=== PATIENT | female | born 1985 | race Caucasian/White ===

== ENCOUNTER → 2017-06-24 | Emergency (ER) | payer OTHER ==
[~2017-06-24] VITALS: Ht 157.5 cm; Wt 67.1 kg
[~2017-06-24] MED LIST: PNEU16DI2; WELLBUTRIN XL150 M1
== END | disposition home or self-care (01) ==
LOC: ER 19:30
DX: Z91.410 Personal history of adult physical and sexual abuse (principal)

== ENCOUNTER 2018-11-11 16:45 | Emergency (ER) | payer OTHER ==
[~2018-11-11] VITALS: Ht 157.5 cm; Wt 77.1 kg
[2018-11-11] MEDS ORDERED: ADVIL100 MG (16:56)
== END 2018-11-11 21:49 | disposition home or self-care (01) ==
LOC: ER 16:45
DX: R51 Headache (principal)